=== PATIENT | male | born 1965 | race Hispanic/Latino ===

== ENCOUNTER 2017-12-22 17:38 | Inpatient (IN) | payer BC ==
[2017-12-22] MEDS ORDERED: Oxycodone/Acetaminophen 5/325 mg Tab PO STA (18:23)
[2017-12-22] MEDS ORDERED: Oxycodone/Acetaminophen 5/325 mg Tab ONE (18:29)
[2017-12-22 19:44] LABS: BASO # 0.1 K/uL (0.0-0.2); BASO % 0.8 % (0.0-2.0); EOS # 0.1 K/uL (0.0-0.7); EOS % 1.2 % (0.0-4.0); HEMOGLOBIN 15.1 g/dL (12.0-18.0); LYMPH # 1.4 K/uL (1.0-4.3); LYMPH % 19.3 % (20.0-40.0); MEAN CELL VOLUME 93.2 fL (80.0-94.0); MEAN CORPUSCULAR HEMOGLOBIN 32.1 pg (27.0-31.0); MEAN CORPUSCULAR HGB CONC 34.4 g/dL (33.0-37.0); MEAN PLATELET VOLUME 8.6 fL (7.2-11.7); MONO # 0.6 K/uL (0.0-0.8); MONO % 8.6 % (0.0-10.0); NEUT % 70.1 % (50.0-75.0); RBC 4.72 Mil/uL (4.40-5.90); RED CELL DISTRIBUTION WIDTH 13.1 % (11.5-14.5); WHITE BLOOD COUNT 7.1 K/uL (4.8-10.8)
[2017-12-22 19:57] LABS: URINE BILIRUBIN NEGATIVE (NEGATIVE); URINE BLOOD 1+ (NEGATIVE); URINE CLARITY Clear (Clear); URINE COLOR Yellow (YELLOW); URINE GLUCOSE (UA) NORMAL (Normal); URINE HYALINE CAST 0-2 /lpf (0-2); URINE LEUKOCYTE ESTERASE NEG Leu/uL (Negative); URINE PROTEIN NEGATIVE (NEGATIVE)
[2017-12-22 20:01] LABS: ALB/GLOB RATIO 1.3 (1.0-2.1); ALBUMIN 4.1 g/dL (3.5-5.0); ALT/SGPT 67 U/L (21-72); AST/SGOT 76 U/L (17-59); BLOOD UREA NITROGEN 19 mg/dL (9-20); CALCIUM 8.1 mg/dl (8.6-10.4); GFR AFRICAN-AMERICAN > 60; GFR NON-AFRICAN AMERICAN > 60
[2017-12-22 20:04] LABS: BARBITURATES, UR NEGATIVE (NEGATIVE); BENZODIAZEPINES, UR NEGATIVE (NEGATIVE); OPIATES, UR NEGATIVE (NEGATIVE); PHENCYCLIDINE, UR NEGATIVE (NEGATIVE)
--- NOTE | 2017-12-22 21:02 | C.PDOC ---
History Of Present Illness 52 y/o male presents to ED requesting ETOH detox. Patient reports last drink was earlier today and drinks 2-3 pints daily. Patient reports chronic knee pain and denies any acute physical complaints. Chief Complaint (Nursing): Substance Abuse History Per: Patient History/Exam Limitations: no limitations Onset/Duration Of Symptoms: Days Current Symptoms Are (Timing): Still Present Suicide/Self Injury Attempted (Context): None Modifying Factor(s): Alcohol Past Medical History Reviewed: Historical Data, Nursing Documentation, Vital Signs Vital Signs: Last Vital Signs Temp 98 F 12/22/17 22:42 Pulse 78 12/22/17 22:42 Resp 18 12/22/17 22:42 BP 123/74 12/22/17 22:42 Pulse Ox 98 12/22/17 22:42 - Medical History PMH: No Chronic Diseases Surgical History: No Surg Hx Family History: States: No Known Family Hx - Social History Hx Alcohol Use: Yes Hx Substance Use: No Review Of Systems Constitutional: Negative for: Fever, Chills Cardiovascular: Negative for: Chest Pain Respiratory: Negative for: Shortness of Breath Gastrointestinal: Negative for: Nausea, Vomiting Skin: Negative for: Rash Psych: Positive for: Other (ETOH intoxication). Negative for: Suicidal ideation , Withdrawal Physical Exam - Physical Exam Appears: Non-toxic, No Acute Distress Skin: Warm, Dry, No Rash Head: Atraumatic, Normacephalic Eye(s): bilateral: Normal Inspection Oral Mucosa: Moist Neck: Normal ROM, Supple Cardiovascular: Rhythm Regular Respiratory: Normal Breath Sounds, No Rales, No Rhonchi, No Wheezing Gastrointestinal/Abdominal: Soft, No Tenderness, No Guarding, No Rebound Neurological/Psych: Oriented x3, Normal Speech, Normal Cognition ED Course And Treatment - Laboratory Results Result Diagrams: 12/22/17 19:41 12/22/17 19:41 O2 Sat by Pulse Oximetry: 99 (RA) Pulse Ox Interpretation: Normal Medical Decision Making Medical Decision Making: Progress: Patient medically cleared for detox admission Disposition - Disposition Disposition: HOSPITALIZED Disposition Time: 20:10 Condition: STABLE - Clinical Impression Clinical Impression: Alcohol dependence - Scribe Statement The provider has reviewed the documentation as recorded by the Cainibjeremy Arias All medical record entries made by the Cainibjeremy were at my direction and personally dictated by me. I have reviewed the chart and agree that the record accurately reflects my personal performance of the history, physical exam, medical decision making, and the department course for this patient. I have also personally directed, reviewed, and agree with the discharge instructions and disposition.
[2017-12-22] MEDS ORDERED: oxyCODONE 5 mg Immediate Release Tab PO STA (21:19)
[2017-12-22] MEDS ORDERED: oxyCODONE 5 mg Immediate Release Tab ONE (21:24)
--- NOTE | 2017-12-22 23:52 | PCM.BM ---
<ChantelEtta - Last Filed: 12/22/17 23:51> Treatment Plan Problems - Problems identified on initial assessmt Ineffective Coping Skills Date Initiated: 12/22/17 Time Initiated: 23:51 Assessment reference: NA Status: Active Treatment assets and liabiliti Patient Assests: ADL independent Patient Liabilities: financial problems, poor support system, substance abuse, medical problems - Milieu Protocol Maintain good personal hygiene: daily Encourage regular showers, daily Remind patient to perform daily oral care, other Assist patient to perform ADL's Maintain personal safety: every shift Educate patient to report safety concerns to staff, every shift Monitor environment for contraband/sharps Medication safety: Monitor for expected outcome, potential side effects: every shift, Assess barriers to learning: every shift, Assess readiness for medication education: every shift <Divine Traore - Last Filed: 12/23/17 11:00> Family Contact Family involvement: Famliy/SO not involved - Goals for Treatment Patient goals for treatment: Complete detox and discuss aftercare options with counseling staff. Discharge/Continuing Care - Education Needs Education Needs: Patient Medication, Patient Diagnosis/Disease Process, Patient Coping Skills, Patient Anger Management skills, Patient Placement options, Patient Community resources - Discharge Discharge Criteria: No longer exhibiting s/s of withdrawal, Reduction of target symptoms Discharge to:: Other - Additional Comments 12/23/17 11:00 To be determined. - Treatment Team Participation Discussed with Family/SO: No Was Patient/Family/SO present at Treatment Team Meeting: Yes <Evangelista Gandhi - Last Filed: 12/23/17 13:06> - Diagnosis (1) Alcohol dependence Status: Acute Interventions: 12/23/17 13:06 * Assess 7x/week regarding severity of withdrawal * Educate regarding risks, benefits, side effects and alternatives of medications * Use Motivational Interviewing for abstinence * Use CBT for relapse prevention * Medication management for withdrawal symptoms * Encourage medication assisted treatment *
[2017-12-23] MEDS ORDERED: oxyCODONE 5 mg Immediate Release Tab PO STA (00:17)
[2017-12-23] MEDS ORDERED: oxyCODONE 5 mg Immediate Release Tab ONE (00:24)
[2017-12-23] MEDS ORDERED: Aluminum Hydroxide/Magnesium Hydroxide Susp (30 mL) PO PRN (01:05)
[2017-12-23] MEDS: Multiple Vitamins Tab PO SCH (10:52)
[2017-12-23] MEDS: Pantoprazole 40 mg EC Tab PO SCH (13:13)
--- NOTE | 2017-12-23 14:00 | CP.PCM.CON ---
History of Present Illness - History of Present Illness History of Present Illness: COMPREHENSIVE HISTORY & PHYSICAL EXAM HPI Patient is admitted on the detox program having a history of chronic EtOH and alcohol dependency with withdrawal. Patient also has a history of hypertension and takes lisinopril at home noncompliant. Patient currently has a blood pressure of 170/110 mmHg and patient has been getting Catapres 0.1 mg by mouth when necessary. PAST HIST. Patient has a history of bilateral knee pain requiring knee replacement. History of hypertension. No history of coronary artery disease [place] stroke or diabetes PERSONAL HIST: Smoking. N Alcohol. Heavy Allergy N Travel_ - . FAMILY HIST : ROS : Constitutional: Negative for weight change, chills, night sweats, fatigue and usage of assist device. Eyes: Negative for redness, swelling, itching, discharge, vision changes, blurry vision, double vision, glaucoma, cataracts, Ears: Negative for hearing loss, ringing, , tinnitus, vertigo Nose: Negative for rhinorrhea, stuffiness, sniffing, itching, postnasal drip, discoloration, nasal congestion and epistaxis. Throat: Negative for throat clearing, sore throat, hoarseness, difficulty swallowing and difficulty speaking. Respiratory: Negative for cough, , sputum production, chest tightness, wheezing, pleuritic chest pain ,daytime somnolence, chronic cough, hemoptysis, snoring at night, Cardiovascular: Negative for chest pain, palpitations, orthopnea, PND, Edema of legs, leg cramps, angina, claudication, , irregular heartbeat, Neurology: Negative muscle weakness or focal deficit Gastrointestinal: Negative for difficulty swallowing, diarrhea, constipation, black stools, rectal bleeding, nausea, flatulence, reflux, poor appetite, changes in bowel habits, abdominal pain Genitourinary: Negative for frequent urination, hematuria, discharge, incontinence, urinary retention, frequent UTI, Psychiatric: Negative for depression, anxiety/panic, suicidal tendencies, Musculoskeletal: Negative for swollen joints, back pain, , neck pain, morning stiffness of joints, . Skin: Negative for rash, ulcers, itching, dry skin and pigmented lesions. P/E: Constitutional: Appears stated age and in no apparent distress. Head: Normocephalic. Ears: External ear canals patent without inflammation. Tympanic membranes intact with normal light reflex and landmark. Eyes: Pupils are central, bilaterally equal, symmetrical and reacts to light with normal movements and no icterus or pallor. Nose: External nares are patent. Mucosa is pink Mouth-Throat: Good general appearance and condition. No post-pharyngeal/oropharyngeal erythema and tonsillar hypertrophy. Good dental hygiene. Neck-Lymphatic: Neck is supple with normal ROM, no thyromegaly, lymph nodes or masses. JVD is normal with no carotid bruit. Lungs: Clear to percussion and auscultation with bilateral normal air entry. Cardiovascular: S1 and S2 are normal with no murmurs, gallops and rub. GI Exam: No hepatomegaly. Abdomen is soft and non-tender. No Organomegaly , masses or hernias are evident and bowel sounds are normal and active. Neurology: Higher function and all cranial nerves intact, with no gross motor or sensory deficit. Superficial and deep reflexes are normal with downwards planters. No cerebellar deficit with normal gait. Musculoskeletal: No tender spots with normal curvature of the spine with no swelling or restricted ROM of the small and large joints. Extremities: Homans sign absent. Intact pulses with no pitting edema, calf tenderness or skin color changes. Skin: No rash, eruptions or abnormal skin pigmentation LAB/RADIOLOGY: ASSESMENT : Essential hypertension, accelerated by alcohol withdrawal and recent alcohol ingestion Bilateral osteoarthritis of the knees Anxiety depression and bipolar disorder PLAN: We will start the patient on Norvasc 10 mg by mouth daily. Monitor the blood pressure and then adjust the medication. Continue medication for alcohol withdrawal and psych disorder. Past Patient History - Past Medical History & Family History Past Medical History?: Yes - Past Social History Smoking Status: Heavy Smoker > 10 Cigarettes Daily - CARDIAC Hx Cardiac Disorders: Yes Hx Hypertension: Yes (Non compliant with BP meds) - PULMONARY Hx Respiratory Disorders: No Hx Tuberculosis: No - NEUROLOGICAL Hx Neurological Disorder: No HX Cerebrovascular Accident: No Hx Seizures: No - HEENT Hx HEENT Problems: No - RENAL Hx Chronic Kidney Disease: No - ENDOCRINE/METABOLIC Hx Endocrine Disorders: No - HEMATOLOGICAL/ONCOLOGICAL Hx Blood Disorders: No Hx Cancer: No Hx Human Immunodeficiency Virus (HIV): No - INTEGUMENTARY Hx Dermatological Problems: No - MUSCULOSKELETAL/RHEUMATOLOGICAL Hx Musculoskeletal Disorders: Yes Hx Falls: No (Denied) Other/Comment: Bilateral Knee Pain - GASTROINTESTINAL Hx Gastrointestinal Disorders: No - GENITOURINARY/GYNECOLOGICAL Hx Genitourinary Disorders: No Hx Sexually Transmitted Disorders: No - PSYCHIATRIC Hx Substance Use: Yes - SURGICAL HISTORY Hx Surgeries: Yes Hx Appendectomy: Yes - ANESTHESIA Hx Anesthesia: Yes Hx Anesthesia Reactions: No (Denied) Hx Malignant Hyperthermia: No Has any member of the family had a problem w/ anesthesia?: No Meds Allergies/Adverse Reactions: Allergies Allergy/AdvReac Type Severity Reaction Status Date / Time No Known Allergies Allergy Unverified 12/22/17 17:59 - Medications Medications: Current Medications Acetaminophen (Tylenol 325mg Tab) 650 mg PO Q4H PRN PRN Reason: Pain, Mild (1-3) Al Hydrox/Mg Hydrox/Simethicone (Maalox 30 Ml) 30 ml PO TID PRN PRN Reason: Indigestion / Heartburn Last Admin: 12/23/17 12:35 Dose: 30 ml Amlodipine Besylate (Norvasc) 10 mg PO DAILY [facility] Last Admin: 12/23/17 10:52 Dose: 10 mg Chlordiazepoxide (Librium) 25 mg PO Q4H PRN PRN Reason: Alcohol Withdrawal Chlordiazepoxide (Librium) 25 mg PO Q6 [facility] PRN Reason: Taper Stop: 12/28/17 07:59 Last Admin: 12/23/17 12:35 Dose: 25 mg Clonidine HCl (Catapres) 0.1 mg PO Q8H PRN PRN Reason: Withdrawal Symptoms Last Admin: 12/23/17 01:08 Dose: 0.1 mg Folic Acid (Folic Acid) 1 mg PO DAILY [facility] Last Admin: 12/23/17 10:52 Dose: 1 mg Gabapentin (Neurontin) 300 mg PO TID [facility] Last Admin: 12/23/17 10:52 Dose: 300 mg Hydroxyzine HCl (Atarax) 25 mg PO Q6H PRN PRN Reason: Agitation Last Admin: 12/23/17 01:08 Dose: 25 mg Loperamide HCl (Imodium) 2 mg PO Q8 PRN PRN Reason: Diarrhea Multivitamins (Hexavitamin) 1 tab PO DAILY [facility] Last Admin: 12/23/17 10:52 Dose: 1 tab Ondansetron HCl (Zofran Tab) 4 mg PO Q8 PRN PRN Reason: Nausea/Vomiting Pantoprazole Sodium (Protonix Ec Tab) 40 mg PO DAILY [facility] Last Admin: 12/23/17 13:13 Dose: 40 mg Thiamine HCl (Vitamin B1 Tab) 100 mg PO DAILY [facility] Last Admin: 12/23/17 10:52 Dose: 100 mg Trazodone HCl (Desyrel) 100 mg PO HS PRN PRN Reason: Insomnia Results - Vital Signs Recent Vital Signs: Last Vital Signs Temp 97.7 F 12/23/17 09:23 Pulse 86 12/23/17 09:23 Resp 20 12/23/17 09:23 BP 166/100 H 12/23/17 09:23 Pulse Ox 96 12/23/17 09:23 - Labs Result Diagrams: 12/22/17 19:41 12/22/17 19:41 Labs: Laboratory Results - last 24 hr 12/22/17 12/22/17 12/22/17 19:41 19:41 19:46 WBC 7.1 RBC 4.72 Hgb 15.1 Hct 44.0 MCV 93.2 MCH 32.1 H MCHC 34.4 RDW 13.1 Plt Count 164 MPV 8.6 Neut % (Auto) 70.1 Lymph % (Auto) 19.3 L [place] % (Auto) 8.6 Eos % (Auto) 1.2 Baso % (Auto) 0.8 Neut # (Auto) 5.0 Lymph # (Auto) 1.4 [place] # (Auto) 0.6 Eos # (Auto) 0.1 Baso # (Auto) 0.1 Sodium 145 Potassium 3.5 L Chloride 107 Carbon Dioxide 20 L Anion Gap 21 H BUN 19 Creatinine 0.9 Est GFR ( Amer) > 60 Est GFR (Non-Af Amer) > 60 Random Glucose 109 Calcium 8.1 L Total Bilirubin 0.7 AST 76 H ALT 67 Alkaline Phosphatase 85 Total Protein 7.4 Albumin 4.1 Globulin 3.2 Albumin/Globulin Ratio 1.3 Urine Color Yellow Urine Clarity Clear Urine pH 6.0 Ur Specific [place] 1.014 Urine Protein Negative Urine Glucose (UA) Normal Urine Ketones Negative Urine Blood 1+ H Urine Nitrate Negative Urine Bilirubin Negative Urine Urobilinogen 2.0 Ur Leukocyte Esterase Neg Urine WBC (Auto) 1 Urine RBC (Auto) 1 Hyaline Casts 0-2 Urine Opiates Screen Urine Methadone Screen Ur Barbiturates Screen Ur Phencyclidine Scrn Ur Amphetamines Screen U Benzodiazepines Scrn U Oth Cocaine Metabols U Cannabinoids Screen Alcohol, Quantitative 127 H 12/22/17 19:46 WBC RBC Hgb Hct MCV MCH MCHC RDW Plt Count MPV Neut % (Auto) Lymph % (Auto) [place] % (Auto) Eos % (Auto) Baso % (Auto) Neut # (Auto) Lymph # (Auto) [place] # (Auto) Eos # (Auto) Baso # (Auto) Sodium Potassium Chloride Carbon Dioxide Anion Gap BUN Creatinine Est GFR ( Amer) Est GFR (Non-Af Amer) Random Glucose Calcium Total Bilirubin AST ALT Alkaline Phosphatase Total Protein Albumin Globulin Albumin/Globulin Ratio Urine Color Urine Clarity Urine pH Ur Specific [place] Urine Protein Urine Glucose (UA) Urine Ketones Urine Blood Urine Nitrate Urine Bilirubin Urine Urobilinogen Ur Leukocyte Esterase Urine WBC (Auto) Urine RBC (Auto) Hyaline Casts Urine Opiates Screen Negative Urine Methadone Screen Negative Ur Barbiturates Screen Negative Ur Phencyclidine Scrn Negative Ur Amphetamines Screen Negative U Benzodiazepines Scrn Negative U Oth Cocaine Metabols Negative U Cannabinoids Screen Negative Alcohol, Quantitative
--- NOTE | 2017-12-23 14:48 | PCM.PSYCH ---
Initial Psychiatric Evaluation - Initial Psychiatric Evaluation Type of Admission: Voluntary Legal Status: Capacity Chief Complaint (in patient's own words): "I am withdrawing from alcohol" History of Present Illness and Precipitating Events: Patient is 52 year old male with past medical history of hypertension is presenting with alcohol withdrawal. Patient drinks 4-6 pints of vodka everyday and has been consistent with this usage for the past 4 years. Patient was brought in by his . He has 3 children (ages 34, 32, 27). He lives with his and youngest child in [place]. 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 This is the first time the patient is presenting to this hospital for detox. Patient does has detox and rehab history for his prior heroin addiction in the early . At the time he was snorting 3-10 bags of heroin a day. Patient has been clean since the end of rehab. Patient denies other drug use. Patient smokes 1 PPD of cigarettes for the past 30 years. Patient is currently having withdrawal symptoms. Patient is complaining of fatigue, tremors in both hands, body aches, sweats, and nausea. Patient has been to AA meetings in the past and displays interest in going back to the AA meetings. Patient was made aware of intensive rehab program but has denied interest at this time. Patient denies depression and suicidal ideation. Patient denies auditory, visual, or tactile hallucinations. Detox Hx: 1x ([facility] early for heroin) Rehab Hx: 1x ([facility] early ) Medical Hx: HTN Surgical Hx: left knee arthroscopic surgery; hernia repair (dates unknown at this time) Family Hx: father had diabetes and CAD Psych Hx: [facility] in [place] for Depression. Was transferred from rehab center to [facility] and was there for 6 months. Allergies: No known allergies. Current Medications: Active Medications Generic Name Dose Route Start Last Admin Trade Name Freq PRN Reason Stop Dose Admin Acetaminophen 650 mg 12/23/17 01:05 Tylenol 325mg Tab PO Q4H PRN Pain, Mild (1-3) Al Hydrox/Mg Hydrox/Simethicone 30 ml 12/23/17 01:05 12/23/17 12:35 Maalox 30 Ml PO 30 ml TID PRN Administration Indigestion / Heartburn Amlodipine Besylate 10 mg 12/23/17 10:00 12/23/17 10:52 Norvasc PO 10 mg DAILY [facility] Administration Chlordiazepoxide 25 mg 12/23/17 01:03 Librium PO Q4H PRN Alcohol Withdrawal Chlordiazepoxide 25 mg 12/23/17 08:00 12/23/17 12:35 Librium PO 12/28/17 07:59 25 mg Q6 [facility] Administration Taper Clonidine HCl 0.1 mg 12/23/17 00:54 12/23/17 01:08 Catapres PO 0.1 mg Q8H PRN Administration Withdrawal Symptoms Folic Acid 1 mg 12/23/17 10:00 12/23/17 10:52 Folic Acid PO 1 mg DAILY [facility] Administration Gabapentin 300 mg 12/23/17 10:00 12/23/17 14:11 Neurontin PO 300 mg TID [facility] Administration Hydroxyzine HCl 25 mg 12/23/17 00:54 12/23/17 01:08 Atarax PO 25 mg Q6H PRN Administration Agitation Loperamide HCl 2 mg 12/23/17 01:05 Imodium PO Q8 PRN Diarrhea Multivitamins 1 tab 12/23/17 10:00 12/23/17 10:52 Hexavitamin PO 1 tab DAILY [facility] Administration Ondansetron HCl 4 mg 12/23/17 01:05 Zofran Tab PO Q8 PRN Nausea/Vomiting Pantoprazole Sodium 40 mg 12/23/17 13:00 12/23/17 13:13 Protonix Ec Tab PO 40 mg DAILY [facility] Administration Thiamine HCl 100 mg 12/23/17 10:00 12/23/17 10:52 Vitamin B1 Tab PO 100 mg DAILY [facility] Administration Trazodone HCl 100 mg 12/23/17 13:06 Desyrel PO HS PRN Insomnia Past Psychiatric History - Past Psychiatric History Previous Treatment History: None Pertinent Medical Hx (Current Medical&Sleep Prob, Allergies): Allergies Allergy/AdvReac Type Severity Reaction Status Date / Time No Known Allergies Allergy Unverified 12/22/17 17:59 Percocet 5/325 mg Tab 12/22/17 Xanax 12/22/17 Review of Systems - Review of Systems All systems: reviewed and no additional remarkable complaints except - Neurological Neurological: UNREMARKABLE - Psychiatric Psychiatric: Abnormal Sleep Pattern, Anxiety, Difficulty Concentrating, Irritability. absent: Anhedonia, Auditory Hallucinations, Behavioral Changes, Change in Appetite, Depression, Hallucinations, Homicidal Ideation, Hopelessness , Memory Loss, Suicidal Ideation, Visual Hallucinations, Tactile Hallucinations Mental Status Examination - Personal Presentation Personal Presentation: Looks stated age (obese) - Affect Affect: Constricted - Motor Activity Motor Activity: Calm - Reliability in Providing Information Reliability in Providing Information: Fair - Speech Speech: Organized - Mood Mood: Anxious - Formal Thought Process Formal Thought Process: No Impairment - Obsessions/Compulsions Obsessions: No Compulsions: No - Cognitive Functions Orientation: Person, Place, Time Sensorium: Drowsy Attention/Concentration: Easily distracted Abstract Thinking: [place] Estimate of Intelligence: Average Judgement: Intact, as evidence by: Good judgement Memory: Recent intact, as evidence by: Ability to recall events of the day, Remote intact, as evidenced by: Ability to recall historical events - Risk Risk: Falls, Diminished functioning - Strength & Assets Inventory Strength & Assets Inventory: Family support, Employment status, Employment history, Cooperative - Limitations Limitations: Other DSM 5 DX - DSM 5 DSM 5 Diagnosis: Alcohol Withdrawal Alcohol Use Disorder, Severe Tobacco Use Disorder, Severe Obesity HTN - Recommended/Plan of Treatment Treatment Recommendations and Plan of Treatment: Librium detox As needed medications Gabapentin for augmentation Med consult for very elevated BP Attend groups and activities Supportive therapy and psychoeducation [place] for abstinence CBT for relapse prevention Encourage MAT Refer to rehab or IOP Attend self-help groups as well 34 min Projected ELOS: 5 days Prognosis: good w treatment - Smoking Cessation Smoking Cessation Initiated: Yes
[2017-12-24] MEDS: Multiple Vitamins Tab PO SCH (10:26)
[2017-12-24] MEDS: Pantoprazole 40 mg EC Tab PO SCH (10:26)
--- NOTE | 2017-12-24 14:11 | CP.PCM.PN ---
Subjective - Date & Time of Evaluation Date of Evaluation: 12/24/17 Time of Evaluation: 14:09 - Subjective Subjective: CHIEF COMPLAINTS TODAY : No specific cardiac symptoms ROS. HEENT : N. Resp : No cough, wheezing ,pleuritic CP ,or hemoptysis Cardio : No anginal CP, PND, orthopnea, palpitation GI : No abd.pain, n/v ,diarrhea or GI bleeding . PRESS [employer] [place] : No headache, vertigo, focal deficit. Musculoskel : No joint swelling , Derm : No rash Psych : Normal affect. Ext : No swelling ,calf pain PE. Pt. is alert awake in no distress. V.S As noted in the chart Head ,ear nose,throat and eyes : Normal. Neck : Supple with normal carotids. Lungs: Clear air entry. Heart : S1 & S2 normal with S4. No murmur. Abd : Soft non tender with normal bowel sounds. Neuro : Moves all ext. with no localized deficit. Ext : No edema with intact pulses.Non tender calves Derm : No rashes or decubitus ulcer. LABS/RADIOLOGY: ASSESSMENT/PLAN : Since the last visit patients blood pressure is stabilized with acceptable systolic and diastolic blood pressure. We will continue the present medication observe for any rise in the blood pressure and plan further Objective - Vital Signs/Intake and Output Vital Signs (last 24 hours): Temp Pulse Resp BP Pulse Ox 97.7 F 97 H 20 143/96 H 96 12/24/17 13:27 12/24/17 13:27 12/24/17 13:27 12/24/17 13:27 12/24/17 13:27 - Medications Medications: Current Medications Acetaminophen (Tylenol 325mg Tab) 650 mg PO Q4H PRN PRN Reason: Pain, Mild (1-3) Last Admin: 12/24/17 06:08 Dose: 650 mg Al Hydrox/Mg Hydrox/Simethicone (Maalox 30 Ml) 30 ml PO TID PRN PRN Reason: Indigestion / Heartburn Last Admin: 12/23/17 12:35 Dose: 30 ml Amlodipine Besylate (Norvasc) 10 mg PO DAILY [facility] Last Admin: 12/24/17 10:26 Dose: 10 mg Chlordiazepoxide (Librium) 25 mg PO Q4H PRN PRN Reason: Alcohol Withdrawal Last Admin: 12/24/17 02:09 Dose: 25 mg Chlordiazepoxide (Librium) 25 mg PO Q6 [facility] PRN Reason: Taper Stop: 12/28/17 07:59 Last Admin: 12/24/17 12:18 Dose: 25 mg Clonidine HCl (Catapres) 0.1 mg PO Q8H PRN PRN Reason: Withdrawal Symptoms Last Admin: 12/24/17 13:32 Dose: 0.1 mg Folic Acid (Folic Acid) 1 mg PO DAILY [facility] Last Admin: 12/24/17 10:26 Dose: 1 mg Gabapentin (Neurontin) 300 mg PO TID [facility] Last Admin: 12/24/17 13:03 Dose: 300 mg Hydroxyzine HCl (Atarax) 25 mg PO Q6H PRN PRN Reason: Agitation Last Admin: 12/24/17 10:52 Dose: 25 mg Loperamide HCl (Imodium) 2 mg PO Q8 PRN PRN Reason: Diarrhea Multivitamins (Hexavitamin) 1 tab PO DAILY [facility] Last Admin: 12/24/17 10:26 Dose: 1 tab Ondansetron HCl (Zofran Tab) 4 mg PO Q8 PRN PRN Reason: Nausea/Vomiting Pantoprazole Sodium (Protonix Ec Tab) 40 mg PO DAILY [facility] Last Admin: 12/24/17 10:26 Dose: 40 mg Thiamine HCl (Vitamin B1 Tab) 100 mg PO DAILY [facility] Last Admin: 12/24/17 10:26 Dose: 100 mg Trazodone HCl (Desyrel) 100 mg PO HS PRN PRN Reason: Insomnia Last Admin: 12/23/17 21:11 Dose: 100 mg - Labs Labs: 12/22/17 19:41 12/22/17 19:41
--- NOTE | 2017-12-24 14:34 | PCM.PYCHPN ---
Psychiatric Progress Note - Psychiatric Progress Note Patient seen today, length of contact: 15 mins Patient Chief Complaint: "I am OK" Problems Identified/Issues Discussed: Patient is seen and evaluated, chart reviewed, and discussed with the nurse. Patients mood has improved today compared to yesterday. Patient still stays in his room most of the day since he still has strong withdrawal symptoms including dizziness, lightheadedness, nausea, sweats, and fatigue. Patient is sleeping and eating well. Patient is working with the counselors to find a outpatient rehab program that will not interfere with his work hours. Patient denies depression and suicidal ideation. Patient denies auditory, visual, or tactile hallucinations. Patient is taking medications and denies any side effects. Supportive therapy and psychoeducation were given. After care discussed. Refusing IOP b/c of work Medication Change: Yes (daily detox changes) Medical Record Reviewed: Yes Mental Status Examination - Cognitive Function Orientation: Person, Place, Time Memory: Intact Attention: Poor Concentration: Poor Association: WNL Fund of Knowledge: Poor - Mood Mood: Anxious - Affect Affect: Constricted - Speech Speech: Appropriate - Formal Thought Process Formal Thought Process: No Impairment - Suicidal Ideation Suicidal Ideation: No - Homicidal Ideation Homicidal Ideation: No Goal/Treatment Plan - Goal/Treatment Plan Need for Continued Stay: Discharge may exacerbated symptoms, Severe functional impairment Progress Toward Problem(s) and Goals/Treatment Plan: Librium detox As needed medications Gabapentin for augmentation Med consult for very elevated BP Attend groups and activities Supportive therapy and psychoeducation [place] for abstinence CBT for relapse prevention Encourage MAT Refer to rehab or IOP Attend self-help groups as well
--- NOTE | 2017-12-24 14:50 | CARD ---
APPROVED REPORT EKG Measurement Heart [id number] <Conclusion> * Pediatric ECG analysis * Sinus bradycardia Left axis deviation Incomplete left bundle branch block Borderline Prolonged QT, may be secondary to QRS abnormality
[2017-12-25] MEDS: Pantoprazole 40 mg EC Tab PO SCH (09:42)
[2017-12-25] MEDS: Multiple Vitamins Tab PO SCH (09:42)
--- NOTE | 2017-12-25 13:04 | PCM.PYCHPN ---
Psychiatric Progress Note - Psychiatric Progress Note Patient seen today, length of contact: 16 min Patient Chief Complaint: "I am getting there" Problems Identified/Issues Discussed: The pt is seen, chart reviewed, case discussed with staff. The pt is compliant with medications and reports no side-effects. Symptoms are improving but needs more time to stabilize. After care discussed, support and psychoeducation given. Medication Change: Yes (daily detox changes) Medical Record Reviewed: Yes Mental Status Examination - Cognitive Function Orientation: Person, Place, Time Memory: Intact Attention: Poor Concentration: Poor Association: WNL Fund of Knowledge: Poor - Mood Mood: Anxious - Affect Affect: Constricted - Speech Speech: Appropriate - Formal Thought Process Formal Thought Process: No Impairment - Suicidal Ideation Suicidal Ideation: No - Homicidal Ideation Homicidal Ideation: No Goal/Treatment Plan - Goal/Treatment Plan Need for Continued Stay: Discharge may exacerbated symptoms, Severe functional impairment Progress Toward Problem(s) and Goals/Treatment Plan: Librium detox As needed medications Gabapentin for augmentation Med consult for very elevated BP - help appreciated Attend groups and activities Supportive therapy and psychoeducation [place] for abstinence CBT for relapse prevention Encourage MAT Refer to rehab or IOP Attend self-help groups as well Estimated Date of D/C: 12/27/17
--- NOTE | 2017-12-25 14:01 | CP.PCM.PN ---
Subjective - Date & Time of Evaluation Date of Evaluation: 12/25/17 Time of Evaluation: 14:00 - Subjective Subjective: CHIEF COMPLAINTS TODAY : PATIENT IS COMPLAINING OF BILATERAL KNEE PAIN DEMANDING NARCOTICS bLOOD PRESSURE IS STABILIZED ON CURRENT MEDICATION ROS. HEENT : N. Resp : No cough, wheezing ,pleuritic CP ,or hemoptysis Cardio : No anginal CP, PND, orthopnea, palpitation GI : No abd.pain, n/v ,diarrhea or GI bleeding . 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 Musculoskel : No joint swelling , Derm : No rash Psych : Normal affect. Ext : No swelling ,calf pain PE. Pt. is alert awake in no distress. V.S As noted in the chart Head ,ear nose,throat and eyes : Normal. Neck : Supple with normal carotids. Lungs: Clear air entry. Heart : S1 & S2 normal with S4. No murmur. Abd : Soft non tender with normal bowel sounds. Neuro : Moves all ext. with no localized deficit. Ext : No edema with intact pulses.Non tender calves Derm : No rashes or decubitus ulcer. LABS/RADIOLOGY: ASSESSMENT/PLAN : CONTINUE nORVASC AND MONITOR BLOOD PRESSURE. nARCOTIC PAIN MANAGEMENT PER PSYCH Objective - Vital Signs/Intake and Output Vital Signs (last 24 hours): Temp Pulse Resp BP Pulse Ox 98.0 F 83 18 125/89 97 12/25/17 13:57 12/25/17 13:57 12/25/17 13:57 12/25/17 13:57 12/25/17 13:57 - Medications Medications: Current Medications Acetaminophen (Tylenol 325mg Tab) 650 mg PO Q4H PRN PRN Reason: Pain, Mild (1-3) Last Admin: 12/24/17 16:53 Dose: 650 mg Al Hydrox/Mg Hydrox/Simethicone (Maalox 30 Ml) 30 ml PO TID PRN PRN Reason: Indigestion / Heartburn Last Admin: 12/23/17 12:35 Dose: 30 ml Amlodipine Besylate (Norvasc) 10 mg PO DAILY [facility] Last Admin: 12/25/17 09:42 Dose: 10 mg Chlordiazepoxide (Librium) 25 mg PO Q4H PRN PRN Reason: Alcohol Withdrawal Last Admin: 12/24/17 02:09 Dose: 25 mg Chlordiazepoxide (Librium) 25 mg PO TID [facility] PRN Reason: Taper Stop: 12/28/17 07:59 Last Admin: 12/25/17 09:43 Dose: 25 mg Clonidine HCl (Catapres) 0.1 mg PO Q8H PRN PRN Reason: Withdrawal Symptoms Last Admin: 12/24/17 13:32 Dose: 0.1 mg Folic Acid (Folic Acid) 1 mg PO DAILY [facility] Last Admin: 12/25/17 09:42 Dose: 1 mg Gabapentin (Neurontin) 300 mg PO TID [facility] Last Admin: 12/25/17 09:42 Dose: 300 mg Hydroxyzine HCl (Atarax) 25 mg PO Q6H PRN PRN Reason: Agitation Last Admin: 12/24/17 10:52 Dose: 25 mg Ibuprofen (Motrin Tab) 600 mg PO Q6 PRN PRN Reason: moderate pain Last Admin: 12/25/17 12:16 Dose: 600 mg Loperamide HCl (Imodium) 2 mg PO Q8 PRN PRN Reason: Diarrhea Multivitamins (Hexavitamin) 1 tab PO DAILY [facility] Last Admin: 12/25/17 09:42 Dose: 1 tab Ondansetron HCl (Zofran Tab) 4 mg PO Q8 PRN PRN Reason: Nausea/Vomiting Pantoprazole Sodium (Protonix Ec Tab) 40 mg PO DAILY [facility] Last Admin: 12/25/17 09:42 Dose: 40 mg Thiamine HCl (Vitamin B1 Tab) 100 mg PO DAILY [facility] Last Admin: 12/25/17 09:42 Dose: 100 mg Trazodone HCl (Desyrel) 100 mg PO HS PRN PRN Reason: Insomnia Last Admin: 12/24/17 21:56 Dose: 100 mg - Labs Labs: 12/22/17 19:41 12/22/17 19:41
[2017-12-26] MEDS: Pantoprazole 40 mg EC Tab PO SCH (09:49)
[2017-12-26] MEDS: Multiple Vitamins Tab PO SCH (09:49)
--- NOTE | 2017-12-26 12:55 | CP.PCM.PN ---
Subjective - Date & Time of Evaluation Date of Evaluation: 12/26/17 Time of Evaluation: 12:55 - Subjective Subjective: CHIEF COMPLAINTS TODAY : PATIENT IS COMPLAINING OF BILATERAL KNEE PAIN DEMANDING NARCOTICS bLOOD PRESSURE IS STABILIZED ON CURRENT MEDICATION ROS. HEENT : N. Resp : No cough, wheezing ,pleuritic CP ,or hemoptysis Cardio : No anginal CP, PND, orthopnea, palpitation GI : No abd.pain, n/v ,diarrhea or GI bleeding . 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 Musculoskel : No joint swelling , Derm : No rash Psych : Normal affect. Ext : No swelling ,calf pain PE. Pt. is alert awake in no distress. V.S As noted in the chart Head ,ear nose,throat and eyes : Normal. Neck : Supple with normal carotids. Lungs: Clear air entry. Heart : S1 & S2 normal with S4. No murmur. Abd : Soft non tender with normal bowel sounds. Neuro : Moves all ext. with no localized deficit. Ext : No edema with intact pulses.Non tender calves Derm : No rashes or decubitus ulcer. LABS/RADIOLOGY: ASSESSMENT/PLAN : CONTINUE nORVASC AND MONITOR BLOOD PRESSURE. nARCOTIC PAIN MANAGEMENT PER PSYCH Objective - Vital Signs/Intake and Output Vital Signs (last 24 hours): Temp Pulse Resp BP Pulse Ox 98.0 F 83 18 125/89 97 12/25/17 13:57 12/25/17 13:57 12/25/17 13:57 12/25/17 13:57 12/25/17 13:57 - Medications Medications: Current Medications Acetaminophen (Tylenol 325mg Tab) 650 mg PO Q4H PRN PRN Reason: Pain, Mild (1-3) Last Admin: 12/24/17 16:53 Dose: 650 mg Al Hydrox/Mg Hydrox/Simethicone (Maalox 30 Ml) 30 ml PO TID PRN PRN Reason: Indigestion / Heartburn Last Admin: 12/23/17 12:35 Dose: 30 ml Amlodipine Besylate (Norvasc) 10 mg PO DAILY [facility] Last Admin: 12/25/17 09:42 Dose: 10 mg Chlordiazepoxide (Librium) 25 mg PO Q4H PRN Objective - Vital Signs/Intake and Output Vital Signs (last 24 hours): Temp Pulse Resp BP Pulse Ox 97.8 F 20 L 104 H 125/84 96 12/26/17 09:14 12/26/17 09:14 12/26/17 09:14 12/26/17 09:14 12/26/17 09:14 - Medications Medications: Current Medications Acetaminophen (Tylenol 325mg Tab) 650 mg PO Q4H PRN PRN Reason: Pain, Mild (1-3) Last Admin: 12/24/17 16:53 Dose: 650 mg Al Hydrox/Mg Hydrox/Simethicone (Maalox 30 Ml) 30 ml PO TID PRN PRN Reason: Indigestion / Heartburn Last Admin: 12/23/17 12:35 Dose: 30 ml Amlodipine Besylate (Norvasc) 10 mg PO DAILY [facility] Last Admin: 12/26/17 09:48 Dose: 10 mg Chlordiazepoxide (Librium) 25 mg PO Q4H PRN PRN Reason: Alcohol Withdrawal Last Admin: 12/24/17 02:09 Dose: 25 mg Chlordiazepoxide (Librium) 25 mg PO BID [facility] PRN Reason: Taper Stop: 12/28/17 07:59 Last Admin: 12/26/17 09:48 Dose: 25 mg Clonidine HCl (Catapres) 0.1 mg PO Q8H PRN PRN Reason: Withdrawal Symptoms Last Admin: 12/25/17 16:37 Dose: 0.1 mg Folic Acid (Folic Acid) 1 mg PO DAILY [facility] Last Admin: 12/26/17 09:52 Dose: Not Given Gabapentin (Neurontin) 300 mg PO TID [facility] Last Admin: 12/26/17 09:49 Dose: 300 mg Hydroxyzine HCl (Atarax) 25 mg PO Q6H PRN PRN Reason: Agitation Last Admin: 12/25/17 19:28 Dose: 25 mg Ibuprofen (Motrin Tab) 600 mg PO Q6 PRN PRN Reason: moderate pain Last Admin: 12/26/17 07:48 Dose: 600 mg Loperamide HCl (Imodium) 2 mg PO Q8 PRN PRN Reason: Diarrhea Multivitamins (Hexavitamin) 1 tab PO DAILY [facility] Last Admin: 12/26/17 09:49 Dose: 1 tab Ondansetron HCl (Zofran Tab) 4 mg PO Q8 PRN PRN Reason: Nausea/Vomiting Pantoprazole Sodium (Protonix Ec Tab) 40 mg PO DAILY [facility] Last Admin: 12/26/17 09:49 Dose: 40 mg Thiamine HCl (Vitamin B1 Tab) 100 mg PO DAILY [facility] Last Admin: 12/26/17 09:49 Dose: 100 mg Trazodone HCl (Desyrel) 100 mg PO HS PRN PRN Reason: Insomnia Last Admin: 12/25/17 21:42 Dose: 100 mg - Labs Labs: 12/22/17 19:41 12/22/17 19:41
--- NOTE | 2017-12-27 08:39 | PCM.PYCHDC ---
Mental Status Examination - Mental Status Examination Orientation: Person, Place, Situation, Time Memory: Intact Mood: Anxious, Other (easily irate) Affect: Constricted Speech: Appropriate, Loud (at times) Attention: WNL Concentration: Poor Association: WNL Fund of Knowledge: WNL Formal Thought Process: No Impairment Suicidal Ideation: No Current Homicidal Ideation?: No Discharge Summary - Discharge Note Reason for Hospitalization: Alcohol detox Consultations:: List each consultation separately and include: 1. Reason for request. 2. Findings. 3. Follow-up Consultations: Medicine consulted for very high BP - help appreciated. It is now controlled Code star team also came to see the pt last day - see below. Summary of Hospital Course include:: 1. Description of specific treatment plan utilized for patients during their course of treatmen. 2. Summarize the time- course for resolution of acute symptoms and/or regressed behaviors. 3. Describe issues identified and worked on during hospitalization. 4. Describe medication utilized. 5. Describe medical problems identified and treated. 6. Reassessment of suicide risk Summary of Hospital Course: Patient is seen several times, chart reviewed, case discussed. On admission: Patient is 52 year old male with past medical history of hypertension is presenting with alcohol withdrawal. Patient drinks 4-6 pints of vodka everyday and has been consistent with this usage for the past 4 years. Patient was brought in by his . He has 3 children (ages 34, 32, 27). He lives with his and youngest child in [place]. 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 This is the first time the patient is presenting to this hospital for detox. Patient does has detox and rehab history for his prior heroin addiction in the early . At the time he was snorting 3-10 bags of heroin a day. Patient has been clean since the end of rehab. Patient denies other drug use. Patient smokes 1 PPD of cigarettes for the past 30 years. Patient is currently having withdrawal symptoms. Patient is complaining of fatigue, tremors in both hands, body aches, sweats, and nausea. Patient has been to AA meetings in the past and displays interest in going back to the AA meetings. Patient was made aware of intensive rehab program but has denied interest at this time. Patient denies depression and suicidal ideation. Patient denies auditory, visual, or tactile hallucinations. Detox Hx: 1x ([facility] early for heroin) Rehab Hx: 1x ([facility]; early ) Medical Hx: HTN Surgical Hx: left knee arthroscopic surgery; hernia repair (dates unknown at this time) Family Hx: father had diabetes and CAD Psych Hx: [facility] in [place] for Depression. Was transferred from rehab center to [facility] and was there for 6 months. Allergies: No known allergies. Hospital course: The pt was admitted and started on treatment with psychotherapy, support, psychoeducation and medications. [place] and CBT used. The pt attended groups and activities, as well as milieu therapy. All the risks and benefits of medications are discussed and the patient understood and agreed. The pt improved with the treatments provided. He was found to have extremely high BP but we managed to keep it under control. After care discussed with the patient. He will go to [facility] at [address] [place] [address], [id number] This morning, out of the blue, he asked this journalists and other writers to prescribe Percocet "for a few day," but he is advised to call his PCP, but he said "he is on vacation" and journalists and other writers reminded him to call whoever is covering him. However, Ultram and Naproxen prn ordered and rx'ed and risks discussed. He had no complaints to the journalists and other writers or request for stronger meds until this am. Later, afetr his discharge, he chose to wait on the unit until his could come to pick him up. He was walking with a walker and fell unobserved. He said his knees "give up sometimes" and that he had fallen before too. Code nae is called and team evaluated him, including bilateral x-rays of knees and tibia/ fibula, and they all came negative. He looked OK. Ice and supportive measures provided, ultram/naproxen given, but he got verbally abusive towards our staff and demanded "percocet" again from them, and later from the medical team, but rejected again. He is then discharged to his . - Final Diagnosis (DSM 5) Condition upon Discharge: IMPROVED DSM 5: Alcohol withdrawal Alcohol use d/o - severe Anxiety d/o - unspecified r/o personality d/o unspecified Tobacco use d/o - severe Osteoarthritis of the knees HTN Obesity Disposition: HOME/ ROUTINE Follow-up Treatment Plan: Continue below medications after discharge. Follow after care plan as discussed. Use relapse prevention skills Return to ER or call 911 if suicidal, homicidal or symptoms relapse. Stay away from stress, alcohol and drugs. See primary doctor regularly and get labs and med refills. total time: 35 min Prescriptions/Medication Reconciliation: amLODIPine [Norvasc] 10 mg PO DAILY #30 tab Gabapentin [Neurontin] 300 mg PO TID #90 cap Naproxen [Anaprox DS] 550 mg PO BID PRN #30 tab PRN Reason: Pain, Severe (8-10) Pantoprazole [Protonix EC Tab] 40 mg PO DAILY #30 ect traMADol [Ultram] 50 mg PO Q8H PRN #12 tab PRN Reason: Pain, Severe (8-10) traZODone [Desyrel] 100 mg PO HS PRN #30 tab PRN Reason: Insomnia - Smoking Cessation Smoking Cessation Medication prescribed: No - Antipsychotic Medications Pt discharged on 2 or more routine antipsychotic medications: No
--- NOTE | 2017-12-27 08:40 | PCM.PYCHPN ---
Psychiatric Progress Note - Psychiatric Progress Note Patient seen today, length of contact: 16 min Patient Chief Complaint: "I am nervous" Problems Identified/Issues Discussed: The pt is seen, chart reviewed, case discussed with staff. Support given, CBT and [place] used briefly No new symptoms reported, improving slowly and needs more time No SEs from medications, risks discussed. After care discussed- incl. pain (in knees) control. Medication Change: Yes (daily detox changes) Medical Record Reviewed: Yes Mental Status Examination - Cognitive Function Orientation: Person, Place, Situation, Time Memory: Intact Attention: WNL Concentration: Poor Association: WNL Fund of Knowledge: WNL - Mood Mood: Anxious - Affect Affect: Constricted - Speech Speech: Appropriate - Formal Thought Process Formal Thought Process: No Impairment - Suicidal Ideation Suicidal Ideation: No - Homicidal Ideation Homicidal Ideation: No Goal/Treatment Plan - Goal/Treatment Plan Need for Continued Stay: Discharge may exacerbated symptoms, Severe functional impairment Progress Toward Problem(s) and Goals/Treatment Plan: Librium detox As needed medications Gabapentin for augmentation Med consult for very elevated BP - help appreciated Attend groups and activities Supportive therapy and psychoeducation [place] for abstinence CBT for relapse prevention Encourage MAT Refer to rehab or IOP Attend self-help groups as well Estimated Date of D/C: 12/27/17
[2017-12-27] MEDS: Pantoprazole 40 mg EC Tab PO SCH (09:59)
[2017-12-27] MEDS: Multiple Vitamins Tab PO SCH (09:59)
[2017-12-27] MEDS ORDERED: Naproxen 550 mg Tab PO PRN (10:00)
--- NOTE | 2017-12-27 12:59 | CP.PCM.PN ---
Subjective - Date & Time of Evaluation Date of Evaluation: 12/27/17 Time of Evaluation: 12:51 - Subjective Subjective: HOUSE DOCTOR NOTE CODE STAR @ 12:38 pm Patient found lying in hallway by nurses station at detox floor. Patient reports mechanical fall, that was not witnessed by staff. He is found AAOx3, aware of context of admission. Patient reports pertinent history of "bad knee arthritis in both knees." Patient states he was leaning too far to the right on his walker and "lost his balance." He reports "landing awkwardly on his right leg." Reports 6/10 pain in his right knee after fall, that is worsened with straightening. Reports history of prior surgery on his left knee. Denies hitting his head, syncope, headache, palpitations, chest pain, SOB, abd pain, N/ V/D/C. PE: Gen: NAD, AAOx3 - aware of president of [place], context of admission CV: s1, s2, rr Lungs: CTA B/l Ext: TTP @ right tibial plateau; Varus/Valgus negative; anterior drawer - no appreciable laxity; Jairo/Dong - negative; No obvious swelling, erythema, no step-off sign of tibia; No tremors A/P 1. Mechanical fall - f/u rt knee, tib/fib xrays Objective - Vital Signs/Intake and Output Vital Signs (last 24 hours): Temp Pulse Resp BP Pulse Ox 97.6 F 92 H 18 131/86 98 12/27/17 09:30 12/27/17 09:30 12/27/17 09:30 12/27/17 09:30 12/27/17 09:30 - Medications Medications: Current Medications Acetaminophen (Tylenol 325mg Tab) 650 mg PO Q4H PRN PRN Reason: Pain, Mild (1-3) Last Admin: 12/24/17 16:53 Dose: 650 mg Al Hydrox/Mg Hydrox/Simethicone (Maalox 30 Ml) 30 ml PO TID PRN PRN Reason: Indigestion / Heartburn Last Admin: 12/23/17 12:35 Dose: 30 ml Amlodipine Besylate (Norvasc) 10 mg PO DAILY [facility] Last Admin: 12/27/17 09:59 Dose: 10 mg Chlordiazepoxide (Librium) 25 mg PO Q4H PRN PRN Reason: Alcohol Withdrawal Last Admin: 12/24/17 02:09 Dose: 25 mg Chlordiazepoxide (Librium) 25 mg PO DAILY [facility] PRN Reason: Taper Stop: 12/28/17 07:59 Last Admin: 12/27/17 09:59 Dose: 25 mg Clonidine HCl (Catapres) 0.1 mg PO Q8H PRN PRN Reason: Withdrawal Symptoms Last Admin: 12/25/17 16:37 Dose: 0.1 mg Folic Acid (Folic Acid) 1 mg PO DAILY [facility] Last Admin: 12/27/17 09:59 Dose: 1 mg Gabapentin (Neurontin) 300 mg PO TID [facility] Last Admin: 12/27/17 09:59 Dose: 300 mg Hydroxyzine HCl (Atarax) 25 mg PO Q6H PRN PRN Reason: Agitation Last Admin: 12/26/17 15:07 Dose: 25 mg Ibuprofen (Motrin Tab) 600 mg PO Q6 PRN PRN Reason: moderate pain Last Admin: 12/27/17 08:27 Dose: 600 mg Loperamide HCl (Imodium) 2 mg PO Q8 PRN PRN Reason: Diarrhea Multivitamins (Hexavitamin) 1 tab PO DAILY [facility] Last Admin: 12/27/17 09:59 Dose: 1 tab Naproxen (Anaprox Ds) 550 mg PO BID PRN PRN Reason: Pain, severe (8-10) Ondansetron HCl (Zofran Tab) 4 mg PO Q8 PRN PRN Reason: Nausea/Vomiting Pantoprazole Sodium (Protonix Ec Tab) 40 mg PO DAILY [facility] Last Admin: 12/27/17 09:59 Dose: 40 mg Thiamine HCl (Vitamin B1 Tab) 100 mg PO DAILY [facility] Last Admin: 12/27/17 09:59 Dose: 100 mg Trazodone HCl (Desyrel) 100 mg PO HS PRN PRN Reason: Insomnia Last Admin: 12/26/17 22:28 Dose: 100 mg - Labs Labs: 12/22/17 19:41 12/22/17 19:41
[2017-12-27 14:38] VITALS: PULSE 96
[2017-12-27 16:44] VITALS: BP 122/84; RESP 19; TEMP 97.8; O2SAT 96
--- NOTE | 2017-12-27 17:59 | RAD ---
PROCEDURE: Radiographs of the right tibia and fibula. HISTORY: code star; pain rt knee; hx OA COMPARISON: None available. TECHNIQUE: Frontal and lateral views obtained. FINDINGS: BONES: No fracture or destructive lesion. JOINT SPACES: Unremarkable. OTHER FINDINGS: None. IMPRESSION: Unremarkable radiographs of the right tibia and fibula.
--- NOTE | 2017-12-27 17:59 | RAD ---
PROCEDURE: Right Knee Radiographs. HISTORY: code star; pain rt knee; hx OA COMPARISON: None. FINDINGS: BONES: Normal. No fracture. JOINTS: Severe tricompartmental osteoarthritis. JOINT EFFUSION: Minimal joint effusion. OTHER FINDINGS: None. IMPRESSION: Tricompartmental osteoarthritis, severe.
== END 2017-12-27 18:15 | disposition home or self-care (01) | DRG 897 ==
LOC: C.ER 17:38 → C.9E 21:36 → C.7D 21:59
PROVIDERS: ADMIT Psychiatry & Neurology Psychiatry; ATTEND Psychiatry & Neurology Psychiatry
PROC: HZ2ZZZZ Detoxification Services for Substance Abuse Treatment (ICD-10-PCS; principal; 2017-12-22)
DX: F10.230 Alcohol dependence with withdrawal, uncomplicated (principal); F10.220 Alcohol dependence with intoxication, uncomplicated; Y90.6 Blood alcohol level of 120-199 mg/100 ml; F41.9 Anxiety disorder, unspecified; F17.210 Nicotine dependence, cigarettes, uncomplicated; E66.9 Obesity, unspecified; G89.29 Other chronic pain; I10 Essential (primary) hypertension; M17.0 Bilateral primary osteoarthritis of knee; Z96.659 Presence of unspecified artificial knee joint